=== PATIENT | male | born 1985 | race Hispanic/Latino ===

== ENCOUNTER 2021-05-05 09:44 | Emergency (ER) | payer SELFPAY ==
[~2021-05-05] VITALS: Ht 170.2 cm; Wt 68.0 kg
[2021-05-05 10:21] VITALS: BP 132/90
== END 2021-05-05 10:25 | disposition home or self-care (01) | DRG 156 ==
LOC: ED 09:44
PROC: 3E1B78Z Irrigation of Ear using Irrigating Substance, Via Natural or Artificial Opening (ICD-10-PCS; principal; 2021-05-05)
DX: H61.21 Impacted cerumen, right ear (principal)